=== PATIENT | female | born 1975 | race Caucasian/White ===

== ENCOUNTER → 2023-06-07 12:46 | Outpatient (REF) | payer OTHER, SELFPAY | LOC: HWRAD 12:46 | PROVIDERS: ATTENDING PHYSICIAN Nurse Practitioner; FAMILY PHYSICIAN Physician Assistant Medical | DX: N39.0 Urinary tract infection, site not specified (principal); N30.10 Interstitial cystitis (chronic) without hematuria | CPT/HCPCS: 76770; 76856 ==